=== PATIENT | female | born 1945 | race Caucasian/White ===

== ENCOUNTER → 2019-01-09 | Outpatient (CLI) | payer OTHER | LOC: HYPER 01-01 17:06 | DX: L03.116 Cellulitis of left lower limb (principal); I87.2 Venous insufficiency (chronic) (peripheral); I10 Essential (primary) hypertension; E78.5 Hyperlipidemia, unspecified; B35.1 Tinea unguium; M79.662 Pain in left lower leg; R60.9 Edema, unspecified; Z85.6 Personal history of leukemia; Z86.718 Personal history of other venous thrombosis and embolism ==